=== PATIENT | female | born 1955 | race Caucasian/White ===

== ENCOUNTER 2019-08-26 13:59 | Emergency (ER) | payer BC ==
--- OUTSIDE RECORDS SUMMARY | 2019-08-26 14:09 | XMS REPORT | Continuity of Care Document ---
:1955 External Reference #:[id number] Author Name Yaya Galdamez M.D. Address [address] [place] [address] Care Team Providers Name Role Phone Deanna Eckert MD - Dupligraph Operator Care Team Information Hand I Blocker [phone] Problems Active Problems Provider Date Cortical senile cataract Yaya Galdamez M.D. 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 Social History Type Date Description Comments Sex Unknown ETOH Use Currently consumes alcohol Tobacco Use Start: Unknown Patient has never smoked Smoking Status Reviewed: 08/10/19 Patient has never smoked Allergies, Adverse Reactions, Alerts Active Allergies Reaction Severity Comments Date Dogs 11/06/2013 Cats 11/06/2013 Dust 11/06/2013 Sulfa Antibiotics 11/06/2013 Bee Stings 03/31/2018 Medications Active Medications SIG Qnty Indications Ordering Provider Date Fish Oil Unknown Multi Vitamin Unknown Estrogen Patch Unknown Vivelle-Dot Deanna Eckert MD 0.025mg/24HR Patches Biweek Epipen 2-Arie use as directed by Unknown prescriber for 0.3mg/0.3ML Solution Severe Allergic Auto-Inject Reaction Immunizations Description No Information Available Vital Signs Date Vital Result Comment 06/03/2019 2:37pm Intraocular Pressure Right Eye 13 mmHg Intraocular Pressure Left Eye 13 mmHg 12/01/2018 1:51pm Intraocular Pressure Right Eye 13 mmHg Intraocular Pressure Left Eye 13 mmHg Results Description No Information Available Procedures Date Code Description Status 08/10/2019 62862 Eye Exam Est Intermediate Completed 06/03/2019 56950 Fundus Photography W/Interpretation & Report Completed 06/03/2019 16412 Eye Exam Est Intermediate Completed Medical Devices Description No Information Available Encounters Description No Information Available Assessments Date Code Description Provider 08/10/2019 H25.013 Cortical age-related cataract, bilateral Yaya Galdamez M.D. 06/03/2019 H40.013 Open angle with borderline findings, low Yaya Galdamez M.D. risk, bilateral 06/03/2019 H43.812 Vitreous degeneration, left eye Yaya Galdamez M.D. 06/03/2019 H25.013 Cortical age-related cataract, bilateral Yaya Galdamez M.D. Plan of Treatment Future Appointment(s):12/03/2019 2:45 pm - Yaya Galdamez M.D. at [facility]/10/2019 - Yaya Galdamez M.D.H25.013 Cortical age-related cataract, bilateralFollow up:as scheduled Functional Status Description No Information Available Mental Status Description No Information Available Referrals Description No Information Available
[2019-08-26 14:17] VITALS: BP 147/87
[2019-08-26] MEDS ORDERED: Rabies Immune Globulin/PF 1ML* 1 ML/300 UNITS VIAL IM ONE (14:46)
[2019-08-26] MEDS ORDERED: Rabies VIRUS VACCINE (RabAvert)* 2.5 UNITS VIAL IM ONE (14:46)
--- NOTE | 2019-08-26 14:59 | UC ---
[facility] General HPI - HPI Summary HPI Summary: 64-year-old woman here with a chief complaint of a bat being in her bedroom on the evening of August 24, 2019. Patient said the bat was flying around her face. She's not aware of any bites. She did have some irritation on her upper back but no obvious bite lesly. Feels well otherwise. Spoke to [facility] the recommended rabies immunization and immunoglobulin. - History of Current Complaint Chief Complaint: UCBiteInjury Stated Complaint: NEEDS RABIES VACCINE Time Seen by Provider: 08/26/19 14:46 Pain Intensity: 0 - Allergy/Home Medications Allergies/Adverse Reactions: Allergies Allergy/AdvReac Type Severity Reaction Status Date / Time bee venom protein (honey bee) Allergy Severe Hives Verified 08/26/19 14:17 PMH/Surg Hx/FS Hx/Imm Hx Previously Healthy: Yes - Surgical History Surgical History: Yes Surgery Procedure, Year, and Place: HYSTERECTOMY,OVARIAN CYST REMOVED AND OOPHERECTOMY- [facility] - Social History Alcohol Use: Weekly Alcohol Amount: 10 Substance Use Type: Marijuana Substance Use Comment - Amount & Last Used: 1-3x per year Smoking Status (MU): Never Smoked Tobacco - Immunization History Most Recent Tetanus Shot: 07/02/17 Review of Systems All Other Systems Reviewed And Are Negative: Yes Constitutional: Positive: Negative Skin: Positive: Other - see hpi Eyes: Positive: Negative ENT: Positive: Negative Respiratory: Positive: Negative Cardiovascular: Positive: Negative Gastrointestinal: Positive: Negative Motor: Positive: Negative Neurovascular: Positive: Negative Musculoskeletal: Positive: Negative Neurological: Positive: Negative Psychological: Positive: Negative Is Patient Immunocompromised?: No Physical Exam Triage Information Reviewed: Yes Appearance: Well-Appearing, No Pain Distress, Well-Nourished Vital Signs: Initial Vital Signs Temp 99.0 F 08/26/19 14:12 Pulse 76 08/26/19 14:12 Resp 18 08/26/19 14:12 BP 147/87 08/26/19 14:12 Pulse Ox 100 08/26/19 14:12 Vital Signs Reviewed: Yes Eye Exam: Normal Eyes: Positive: Conjunctiva Clear Neck: Positive: Supple Respiratory: Positive: No respiratory distress Musculoskeletal: Positive: Strength Intact, ROM Intact Neurological: Positive: Alert, Muscle Tone Normal Psychological: Positive: Normal Response To Family, Age Appropriate Behavior Skin: Positive: Other - Patient reports some irritation on her upper thoracic back. I looked I did not see any obvious bite larkin. Course/Dx - Course Course Of Treatment: Patient given rig and rabies vaccination here in clinic today. - Diagnoses Provider Diagnosis: Exposure to bat without known bite Discharge ED - Sign-Out/Discharge Documenting (check all that apply): Patient Departure All imaging exams completed and their final reports reviewed: No Studies - Discharge Plan Condition: Stable Disposition: HOME Patient Education Materials: Rabies Vaccine (ED), Rabies Immune Globulin (By injection) Referrals: Deanna Eckert MD [Primary Care Provider] - Additional Instructions: FOLLOW UP WITH [facility], . YOU WERE GIVEN THE FIRST RABIES VACCINE TODAY. YOU NEED TO CONTINUE THE SERIES WITH THE HEALTH DEPARTMENT. YOU WERE ALSO GIVEN RABIES IMMUNE GLOBULIN TODAY. FOLLOW UP WITH YOUR DOCTOR IF NOT COMPLETELY IMPROVED. GET REEVALUATED SOONER IF NOT IMPROVED OR WORSE OR ANY QUESTIONS OR CONCERNS. - Billing Disposition and Condition Condition: STABLE Disposition: Home
== END 2019-08-26 15:10 | disposition home or self-care (01) ==
LOC: UCEAST 13:59
DX: Z20.3 Contact with and (suspected) exposure to rabies (principal); Z23 Encounter for immunization; Z91.030 Bee allergy status
CPT/HCPCS: 90375; 90471; 90472; 90675; 96372; 99211; G0463

== ENCOUNTER 2020-03-28 09:01 | Inpatient (IN) ==
[2020-03-28] MEDS ORDERED: NS 0.9% 1000 ml BAG 1,000 ML IV ONE (09:41)
[2020-03-28 10:23] LABS: ABS Lymphocytes 0.7 10^3/ul (1.0-4.8); ABS Monocytes 0.4 10^3/ul (0-0.8); Eosinophil % 0.1 %; Hematocrit 38 % (35-47); Hemoglobin 14.2 g/dL (12.0-16.0); Lymphocyte % 8.5 %; Mean Corpuscular HGB Conc 37 g/dL (31-36); Mean Corpuscular Hemoglobin 33 pg (27-31); Mean Corpuscular Volume 89 fL (80-97); Mean Platelet Volume 7.6 fL (7.4-10.4); Platelet Count 259 10^3/uL (150-450); Red Blood Count 4.33 10^6 /uL (3.70-4.87); Red Cell Distribution Width 13 % (10-15); White Blood Count 8.4 10^3/uL (3.5-10.8)
[2020-03-28 10:25] LABS: INR 0.96 (0.82-1.09)
[2020-03-28 10:35] LABS: Albumin 4.3 g/dL (3.2-5.2); Albumin/Globulin Ratio 1.8 (1-3); BUN/Creatinine Ratio 11.7 (8-20); EGFR African American 121.8 (>60); EGFR Non-African American 100.6 (>60); Globulin 2.4 g/dL (2-4); Magnesium 1.8 mg/dL (1.9-2.7); Total Bilirubin 3.2 mg/dL (0.2-1.0); Total Protein 6.7 g/dL (6.4-8.9)
[2020-03-28] MEDS ORDERED: Ondansetron 4 mg VIAL 2 MG/ML 2 ml VIAL IV ONE (10:47)
[2020-03-28] MEDS: levETIRAcetam 1000MG IVPREMIX 1,000 MG/100 ML BAG IVPB SCH ×2 (10:55→23:05)
[2020-03-28 11:38] LABS: Urine Appearance Clear; Urine Bilirubin Negative (Negative); Urine Blood Negative (Negative); Urine Color Straw; Urine Glucose Negative (Negative); Urine Ketones 1+ (Negative); Urine Nitrite Negative (Negative); Urine Protein Negative (Negative); Urine Specific Gravity 1.004 (1.010-1.030); Urine Urobilinogen Negative (Negative)
[2020-03-28 11:45] LABS: Urine Bacteria Absent (Absent); Urine Red Blood Cell Trace(0-2/hpf) (Absent); Urine Squamous Epithelial Cell Present (Absent); Urine White Blood Cell Trace(0-5/hpf) (Absent)
[2020-03-28] MEDS: Ondansetron 4 mg VIAL 2 MG/ML 2 ml VIAL IV PRN ×2 (14:22→20:58)
[2020-03-28 17:53] LABS: BUN/Creatinine Ratio 11.7 (8-20); Calcium 8.9 mg/dL (8.6-10.3); EGFR African American 121.8 (>60); EGFR Non-African American 100.6 (>60)
[2020-03-28] MEDS ORDERED: Gadoteridol (CONTRAST) 279.3 MG/ML 10 ML IV ONE (20:09)
[2020-03-29 05:57] LABS: Calcium 8.8 mg/dL (8.6-10.3); EGFR African American 103.6 (>60); EGFR Non-African American 85.7 (>60); Potassium 3.8 mmol/L (3.5-5.0)
[2020-03-29 11:13] VITALS: BP 109/64
== END 2020-03-29 13:00 | disposition home or self-care (01) | DRG 425 ==
LOC: ED 09:01 → ICU 12:37
PROVIDERS: ADMIT Internal Medicine Critical Care Medicine; ATTEND Internal Medicine Critical Care Medicine